=== PATIENT | male | born 1945 | race Caucasian/White ===

== ENCOUNTER → 2019-01-25 | Outpatient (CLI) | payer MEDICARE ==
[~2019-01-25] MED LIST: ASPI325 PO; ESOM20 PO; OMEP10ER PO
== END ==
LOC: PLD 14:19 → LAB SHORT 14:19
DX: D48.5 Neoplasm of uncertain behavior of skin (principal)
CPT/HCPCS: 88305

== ENCOUNTER 2019-05-19 06:30 | Day surgery (SDC) | payer MEDICARE ==
[~2019-05-19] VITALS: Ht 175.3 cm; Wt 77.2 kg
[~2019-05-19 06:30] MED LIST changes: +ASPI325
[2019-05-19] MEDS ORDERED: ESOM20 PO (06:39)
--- NOTE | 2019-05-19 07:09 | NUR ---
05/19/19 0709 Megan Rondon MA LEFT IV FLUID OPEN AFTER PLACING IV. PT RECEIVED 500CC OF FLUID AND A REPLACEMENT 500CC WAS PLACED.
== END 2019-05-19 08:05 | disposition home or self-care (01) ==
LOC: ORSCSDS 06:30
PROVIDERS: Ophthalmology
PROC: 08RJ3JZ Replacement of Right Lens with Synthetic Substitute, Percutaneous Approach (ICD-10-PCS; principal; 2019-05-19 07:30)
DX: H25.11 Age-related nuclear cataract, right eye (principal); I25.2 Old myocardial infarction
CPT/HCPCS: J2001; J2250; J3010; J3301; J7120; V2632

== ENCOUNTER 2021-07-24 08:30 | Day surgery (SDC) | payer MEDICARE ==
[~2021-07-24] VITALS: Ht 175.3 cm; Wt 82.7 kg
--- NOTE | 2021-07-24 11:03 | NUR ---
07/24/21 1103 Rm Robertson PATIENT ENTERED OR ON SCHEDULED VANCO GIVEN 0935 IN PREOP
--- NOTE | 2021-07-24 19:13 | NUR ---
SHIFT SUMMARY PT A&OX4, VSS/RA, KOSTA PO, VOIDING, PT EVAL'D: AMB SBA/FWW/GB TO BRP/HALLWAY/UP TO CHAIR. S/P R TKA, CDI. PAIN MANAGED WITH 5 OXY/TYLENOL/TORADOL. REPORT PROVIDED TO ONDINA PLASCENCIA.
[2021-07-25 04:43] LABS: BASOPHILS ABSOLUTE AUTO 0.03 K/mm3 (0.00-0.23); BASOPHILS PERCENT AUTO 0 % (0-2); EOSINOPHILS ABSOLUTE AUTO 0.23 K/mm3 (0.00-0.68); EOSINOPHILS PERCENT AUTO 3 % (0-6); Hematocrit 33.8 % (37.0-53.0); Hemoglobin 11.6 g/dL (13.5-17.5); IMMATURE GRAN ABSOLUTE AUTO 0.02 K/mm3 (0.00-0.10); IMMATURE GRAN PERCENT AUTO 0 % (0-1); LYMPHOCYTES ABSOLUTE AUTO 1.19 K/mm3 (0.84-5.20); LYMPHOCYTES PERCENT AUTO 16 % (21-46); MONOCYTES ABSOLUTE AUTO 0.57 K/mm3 (0.16-1.47); MONOCYTES PERCENT AUTO 8 % (4-13); Mean Corpuscular HGB 31.8 pg (26.0-34.0); Mean Corpuscular HGB Conc 34.3 g/dL (31.5-36.5); Mean Corpuscular Volume 93 fL (80-100); Mean Platelet Volume 9.6 fL (9.1-12.4); NEUTROPHILS ABSOLUTE AUTO 5.54 K/mm3 (1.96-9.15); NEUTROPHILS PERCENT AUTO 73 % (41-73); Platelet Count 204 K/mm3 (150-400); RDW Coefficient Variation 12.6 % (11.7-14.2); RDW Standard Deviation 43.4 fL (35.1-46.3); Red Blood Cell Count 3.65 M/mm3 (4.30-5.90); White Blood Cell Count 7.58 K/mm3 (4.00-11.30)
[2021-07-25 05:08] LABS: Bun/Creatinine Ratio 10.6 (12.0-20.0); Calcium, Blood 7.8 mg/dL (8.5-10.1); Creatinine, Blood 1.42 mg/dL (0.60-1.20); Potassium, Blood 3.9 mmol/L (3.5-5.5)
--- NOTE | 2021-07-25 05:51 | NUR ---
SUMMARY PT HAS NO NEW ISSUES NOTED. PT HAS BEEN AMBULATORY W/ GB AND FWW. PT DISCOMFORT HAS BEEN MANAGED WELL T/OUT SHIFT. PT DRESSING INTACT AND DRY. PT HAS BEEN RESTING WELL T/OUT SHIFT.PT CURRENTLY AWAKE AND COMFORTABLE. CALL LIGHT IN REACH.
[2021-07-25] MEDS ORDERED: PROM25 PO (08:15)
[2021-07-25] MEDS ORDERED: Aspir 8181 MG PO (08:15)
[2021-07-25] MEDS ORDERED: SULTRIDS PO (08:16)
[2021-07-25] MEDS ORDERED: OXYC5 PO (08:16)
--- NOTE | 2021-07-25 11:19 | NUR ---
DISCHARGE NOTE: PATIENT AND WERE EDUCATED ON DISCHARGE INSTRUCTIONS. BOTH VERBALIZED UNDERSTANDING OF INSTRUCTIONS. IV WAS TAKEN OUT AND WNL. DESIREE ALREADY RECIEVED HIS HARD PERSCRIPTIONS PRIOR TO SURGERY. RIGHT KNEE HAS AQUACEL AND HEMALATHA WRAP THAT ARE C/D/I. PAIN IS MANAGED WITH PO PAIN MEDICATIONS. DENIES NUMBNESS AND TINGLING. HE IS TOLERATING PO INTAKE AND IS VOIDING. PATIENT IS DRESSED AND HAS HIS PERSONAL ITEMS GATHERED. HE IS BEING WHEELCHAIRED OUT TO HIS WIFES CAR TO BE TAKEN HOME.
== END 2021-07-25 11:00 | disposition home or self-care (01) ==
LOC: ORSCMMR 08:30 → SURS 13:42 → ORSCMMR 07-25 11:00
PROVIDERS: Orthopaedic Surgery
PROC: 0SRC0J9 Replacement of Right Knee Joint with Synthetic Substitute, Cemented, Open Approach (ICD-10-PCS; principal; 2021-07-24 10:45)
PROC: 8E0YXBZ Computer Assisted Procedure of Lower Extremity (ICD-10-PCS; principal; 2021-07-24 10:45)
DX: M17.11 Unilateral primary osteoarthritis, right knee (principal); K21.9 Gastro-esophageal reflux disease without esophagitis; Z79.899 Other long term (current) drug therapy
CPT/HCPCS: 36415; 73560-RT; 80048; 83735; 85025; 97110; 97110-CQ; 97116; 97116-CQ; 97162; 97530-CQ; A9270; C1713; C1776; J0171; J0690; J0735; J1885; J2370; J2405; J2704; J2795; J3010; J3370; J7120

== ENCOUNTER 2022-01-09 12:39 | Day surgery (SDC) | payer MEDICARE ==
[~2022-01-09] VITALS: Ht 175.3 cm; Wt 80.1 kg
[~2022-01-09 12:39] MED LIST changes: +Aspir 8181 MG PO; +OXYC5 PO; +PROM25 PO; +SULTRIDS PO
== END 2022-01-09 14:45 | disposition home or self-care (01) ==
LOC: ORSCSDS 12:39
PROVIDERS: Ophthalmology
PROC: 08RK3JZ Replacement of Left Lens with Synthetic Substitute, Percutaneous Approach (ICD-10-PCS; principal; 2022-01-09 14:00)
DX: H25.12 Age-related nuclear cataract, left eye (principal); I25.2 Old myocardial infarction; I25.10 Atherosclerotic heart disease of native coronary artery without angina pectoris; J44.9 Chronic obstructive pulmonary disease, unspecified; Z79.899 Other long term (current) drug therapy
CPT/HCPCS: J2001; J2250; J3010; J3301; J7040; V2632